=== PATIENT | male | born 1985 | race Caucasian/White ===

== ENCOUNTER 2023-02-08 19:51 | Emergency (ER) | payer MEDICAID ==
[~2023-02-08] VITALS: Ht 170.2 cm; Wt 81.6 kg
[2023-02-08 19:58] VITALS: BP_SYST 129
--- NOTE | 2023-02-08 21:45 | NUR ---
DR. RAYMUNDO ATTEMPTED TO ASSES PATIENT. PATIENT NOT FOUND IN WAITING ROOM. Patient left without being seen.
== END 2023-02-08 21:45 | disposition left against medical advice (07) ==
LOC: SED 19:51
DX: R06.02 Shortness of breath (principal); R07.9 Chest pain, unspecified; Z53.21 Procedure and treatment not carried out due to patient leaving prior to being seen by health care provider
CPT/HCPCS: 93005; 99281